=== PATIENT | female | born 1990 | race Caucasian/White ===

== ENCOUNTER 2023-12-08 09:32 | Outpatient (AMB) | payer OTHER, SELFPAY ==
--- NOTE | 2023-12-08 09:33 | A.OFFVIS_ITS ---
Intake Vital Signs 12/08/23 09:36 Height 5 ft 3.5 in Weight 150 lb 8 oz BMI 26.2 BP 122/80 Blood Pressure Location Rt brachial Position Sitting Respiration 16 Pulse 70 Pulse Source Pulse Oximeter Pulse Oximetry (%) 99 Oxygen Delivery Method Room Air Intake Visit Reasons: E-JAVA LEAD ARCHITECT: BILATERAL HAND TREMORS-LVM Intake Note: Pt presents for new pt evaluation for tremors of bilateral hands for the last 3.5 years. 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 She started noticing tremors in 2019- she thought it was related to medications she was started for COVID - she was very anxious when she was taking the medications. The tremors are bilateral and more noticeable with action. 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 She reports anxiety since 2019. No panic attacks.Her father coded in 2021 about 6 times and has been stressed since then and she is very anxious about his hea lth. Her mother has a diagnosis of essential tremors.Her 39 y/o 1/2 brother had a stroke 2 years ago and has HTN, ADHD she has loud snoring and reports witnessed apneas.she used to work night shifts for 6 years . Now she works dayshift and is sleeping better. [facility] Medical History (Updated 12/08/23 @ 10:08 by Sheela Biggs MD) Hypersomnia Snoring Coarse tremors Spina bifida occulta IBS (irritable bowel syndrome) COVID-19 Anxiety HTN (hypertension) Asthma Surgical History (Updated 12/08/23 @ 09:41 by Nichole Knowles CMA) H/O colposcopy with cervical biopsy History of appendectomy Family History (Updated 12/08/23 @ 09:42 by Nichole Knowles CMA) Mother Diabetes Epilepsy Father CHF (congestive heart failure) FH: heart attack Ventricular hypertrophy due to hypertensive disease HTN (hypertension) Social History (Updated 12/08/23 @ 09:43 by Nichole Knowles CMA) Household Members: Spouse and Children Housing: House Alcohol intake: current Comment: Rarely Patient Tobacco Use Status: Never used Tobacco Physical Exam Vital Signs: Last Vital Signs Pulse 70 12/08/23 09:36 Resp 16 12/08/23 09:36 BP 122/80 12/08/23 09:36 Pulse Ox 99 12/08/23 09:36 Oxygen Delivery Method Room Air 12/08/23 09:36 BMI result Body Mass Index 26.2 Const General: cooperative, healthy appearing, comfortable and no acute distress Nutritional Appearance: average body habitus Orientation/consciousness: patient oriented x3 Eyes Pupils: Equal, round and reactive pupils present Neuro Other: mild adama postural and action tremors Right Ue mild cog wheel rigidity Gait- mild antalgic - reports left hip pain Normal facial expression, blink, FFM and foot taps. General: patient oriented x3, moves all extremities and no focal motor deficits Cranial nerves: Yes Facial sensation intact/muscles of mastication intact, Yes Equal, round and reactive pupils present, Yes Bilaterally intact EOM present, Yes Nystagmus not present, Yes Normal facial strength present, Yes Midline tongue present and Yes Symmetric palate elevation present Cognition (Neuro): normal cognition Gait exam (Neuro): Antalgic gait present Motor exam (neuro): 5/5 motor strength present throughout Deep tendon reflexes (DTR's): Right triceps reflex intensity grade: 3+, Left triceps reflex intensity grade: 3+, Rt Biceps (C5, C6): 3+, Left biceps reflex intensity grade: 3+, Right brachioradialis reflex intensity grade: 3+, Left brachioradialis reflex intensity grade: 3+, Right patellar reflex intensity grade: 4+ and Left patellar reflex intensity grade: 4+ Coordination: [id number] test normal Psych Affect: Anxious affect present Assessment & Plan Assessment & Plan (1) Coarse tremors: Comment: likely essential worsened by anxiety Code(s): G25.2 - Other specified forms of tremor (2) Snoring: Code(s): R06.83 - Snoring (3) Hypersomnia: Code(s): G47.10 - Hypersomnia, unspecified (4) Spina bifida occulta: Code(s): Q76.0 - Spina bifida occulta Plan Consider switching her to a beta johanna for HTN which may help her tremors as well Home sleep test to r/o sleep apnea MRI LS spine - hyperreflexia and spina bifida Orders: Orders RT home sleep study Today G47.10 - Hypersomnia, unspecified, R06.83 - Snoring MR sacrum wo con Today Q76.0 - Spina bifida occulta MR lumbar spine wo con Today Q76.0 - Spina bifida occulta Coding Level of Care Code New Pt Level 4 (19496) Diagnoses Coarse tremors G25.2 Snoring R06.83 Hypersomnia G47.10 Spina bifida occulta Q76.0
[2023-12-08 09:36] VITALS: BP 122/80; PULSE 70; RESP 16; O2SAT 99; BMI 26.2
== END 2023-12-08 10:17 | disposition home or self-care (01) ==
PROVIDERS: PCP Internal Medicine; Visit Provider Psychiatry & Neurology Neurology
DX: G25.2 Other specified forms of tremor (principal); R06.83 Snoring; G47.10 Hypersomnia, unspecified; Q76.0 Spina bifida occulta
CPT/HCPCS: 99204

== ENCOUNTER → 2023-12-08 09:32 | Outpatient (BNVA) | payer OTHER, SELFPAY | PROVIDERS: PCP Internal Medicine; Visit Provider Psychiatry & Neurology Neurology ==

== ENCOUNTER → 2024-01-12 14:46 | Outpatient (REF) | payer OTHER, SELFPAY | LOC: HO.SL 14:46 | PROVIDERS: PCP Internal Medicine; Visit Provider Psychiatry & Neurology Neurology | DX: R06.83 Snoring (principal); G47.10 Hypersomnia, unspecified | CPT/HCPCS: 95806 ==

== ENCOUNTER → 2024-01-12 15:05 | Outpatient (BNV) | payer OTHER, SELFPAY | PROVIDERS: PCP Internal Medicine; Visit Provider Internal Medicine | DX: R06.83 Snoring (principal) | CPT/HCPCS: 95806 ==

== ENCOUNTER 2024-06-09 09:28 | Outpatient (AMB) | payer OTHER, SELFPAY ==
--- NOTE | 2024-06-09 09:28 | A.OFFVIS_ITS ---
Vital Signs 06/09/24 09:32 Height 5 ft 3.5 in Weight 145 lb BMI 25.3 BP 110/70 Blood Pressure Location Rt brachial Position Sitting Pulse 72 Pulse Source Pulse Oximeter Pulse Oximetry (%) 98 Oxygen Delivery Method Room Air Intake Visit Reasons: 6 Month F/U Intake Note: Patient presents for a 6 mo f/u- Coarse tremors. Resident Service Coordinator Required: No Accompanied by: Self / Same As Patient Allergies Sulfa (Sulfonamide Antibiotics) Adverse Reaction (Severe, Verified 06/09/24 09:31) Anaphylaxis HPI Comments Details: 33y/o right handed female comes for follow up of tremors. she is doing well on propranolol 10mg qd Home sleep test was normal MRI L spine was normal History from initial visit- She started noticing tremors in 2019- she thought it was related to medications she was started for COVID - she was very anxious when she was taking the medications. The tremors are bilateral and more noticeable with action. 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 She reports anxiety since 2019. No panic attacks.Her father coded in 2021 about 6 times and has been stressed since then and she is very anxious about his health. Her mother has a diagnosis of essential tremors.Her 39 y/o 1/2 brother had a stroke 2 years ago and has HTN, ADHD she has loud snoring and reports witnessed apneas.she used to work night shifts for 6 years . Now she works dayshift and is sleeping better. [facility] Medical History Hypersomnia Snoring Coarse tremors Spina bifida occulta IBS (irritable bowel syndrome) COVID-19 Anxiety HTN (hypertension) Asthma Surgical History H/O colposcopy with cervical biopsy History of appendectomy Family History Mother Diabetes Epilepsy Father CHF (congestive heart failure) FH: heart attack Ventricular hypertrophy due to hypertensive disease HTN (hypertension) Social History Household Members: Spouse and Children Housing: House Alcohol intake: current Comment: Rarely Patient Tobacco Use Status: Never used Tobacco Physical Exam Vital Signs: Last Vital Signs Pulse 72 06/09/24 09:32 BP 110/70 06/09/24 09:32 Pulse Ox 98 06/09/24 09:32 Oxygen Delivery Method Room Air 06/09/24 09:32 BMI result Body Mass Index 25.3 Const General: cooperative, healthy appearing, comfortable and no acute distress Nutritional Appearance: average body habitus Orientation/consciousness: patient oriented x3 Eyes Pupils: Equal, round and reactive pupils present Neuro Other: No tremors Right Ue mild cog wheel rigidity Gait- normal Normal facial expression, blink, FFM and foot taps. General: patient oriented x3, moves all extremities and no focal motor deficits Cranial nerves: Yes Facial sensation intact/muscles of mastication intact, Yes Equal, round and reactive pupils present, Yes Bilaterally intact EOM present, Yes Nystagmus not present, Yes Normal facial strength present, Yes Midline tongue present and Yes Symmetric palate elevation present Cognition (Neuro): normal cognition Gait exam (Neuro): Antalgic gait present Motor exam (neuro): 5/5 motor strength present throughout Deep tendon reflexes (DTR's): Right triceps reflex intensity grade: 2+, Left triceps reflex intensity grade: 2+, Rt Biceps (C5, C6): 2+, Left biceps reflex intensity grade: 2+, Right brachioradialis reflex intensity grade: 2+, Left brachioradialis reflex intensity grade: 2+, Right patellar reflex intensity grade: 3+ and Left patellar reflex intensity grade: 3+ Coordination: [id number] test normal Psych Affect: Anxious affect present Assessment & Plan Assessment & Plan (1) Coarse tremors: Comment: likely essential worsened by anxiety Code(s): G25.2 - Other specified forms of tremor Category: Medical Plan Continue propranolol 10 mg qd to bid Home sleep test - normal MRI LS spine - normal Coding Level of Care Code Est Pt Level 4 (51043) Diagnoses Coarse tremors G25.2
[2024-06-09 09:32] VITALS: BP 110/70; PULSE 72; O2SAT 98; BMI 25.3
== END 2024-06-09 10:01 | disposition home or self-care (01) ==
PROVIDERS: PCP Internal Medicine; Visit Provider Psychiatry & Neurology Neurology
DX: G25.2 Other specified forms of tremor (principal)
CPT/HCPCS: 99214

== ENCOUNTER → 2024-06-09 09:28 | Outpatient (BNVA) | payer OTHER, SELFPAY | PROVIDERS: PCP Internal Medicine; Visit Provider Psychiatry & Neurology Neurology ==